=== PATIENT | male | born 1970 | race Caucasian/White ===

== ENCOUNTER 2022-02-15 08:00 | Outpatient (CLI) | payer BC | END 2022-02-15 08:01 | disposition home or self-care (01) | LOC: CSHLAB 08:00 | PROVIDERS: ATTEND Surgery | DX: Z01.818 Encounter for other preprocedural examination (principal); Z20.822 Contact with and (suspected) exposure to COVID-19; K42.0 Umbilical hernia with obstruction, without gangrene | CPT/HCPCS: 87811; 93005; 93010 ==

== ENCOUNTER 2022-02-16 05:55 | Day surgery (SDC) | payer BC ==
[2022-02-14 07:55] VITALS: BMI 37.3
[2022-02-16] MEDS ORDERED: EPINEPHrine 1 MG/ML AMP ONE (06:58)
[2022-02-16] MEDS ORDERED: Bupivacaine PF 0.5% 30 ML VIAL ONE (06:59)
[2022-02-16] MEDS ORDERED: Rocuronium Bromide 10 MG/ML (10ML VIAL) ONE (07:09)
[2022-02-16] MEDS ORDERED: Ondansetron PF 4 MG/2 ML Vial ONE (07:09)
[2022-02-16] MEDS ORDERED: Fentanyl 100 MCG/2 ML VIAL ONE ×3 (07:09→09:05)
[2022-02-16] MEDS ORDERED: PROPOFOL 20 ML ONE (07:09)
[2022-02-16] MEDS ORDERED: Dexamethasone 4 mg/ml Vial ONE (07:09)
[2022-02-16] MEDS ORDERED: Lidocaine 1% PF 5 ML VIAL ONE (07:10)
[2022-02-16] MEDS ORDERED: CEFAZOLIN 2 GM VIAL ONE (07:21)
[2022-02-16] MEDS ORDERED: SUGAMMADEX SODIUM 200 MG/2 ML VIAL ONE (07:28)
[2022-02-16] MEDS ORDERED: Bacitracin 1 PK ONE (08:30)
[2022-02-16] MEDS ORDERED: Ketorolac Tromethamine 30 MG/ML VIAL ONE (08:32)
[2022-02-16] MEDS ORDERED: HYDROcodone/Acetaminophen 5/325 mg Tablet PO PRN ×2 (09:00)
[2022-02-16] MEDS ORDERED: Acetaminophen 325 MG TAB PO PRN (09:00)
== END 2022-02-16 09:55 | disposition home or self-care (01) ==
LOC: CSHSDC 05:55
PROVIDERS: ATTEND Surgery
PROC: 0WUF4JZ Supplement Abdominal Wall with Synthetic Substitute, Percutaneous Endoscopic Approach (ICD-10-PCS; principal; 2022-02-16)
DX: K42.0 Umbilical hernia with obstruction, without gangrene (principal); K66.0 Peritoneal adhesions (postprocedural) (postinfection); E66.01 Morbid (severe) obesity due to excess calories; Z68.41 Body mass index [BMI] 40.0-44.9, adult; I10 Essential (primary) hypertension; E03.9 Hypothyroidism, unspecified; Z88.8 Allergy status to other drugs, medicaments and biological substances; Z79.51 Long term (current) use of inhaled steroids; Z79.899 Other long term (current) drug therapy; Z20.822 Contact with and (suspected) exposure to COVID-19
CPT/HCPCS: C1713; J0171; J0690; J1100; J1885; J2405; J2704; J3010; S0020